=== PATIENT | female | born 1955 | race Caucasian/White ===

== ENCOUNTER 2020-07-27 04:02 | Emergency (ER) | payer OTHER ==
[~2020-07-27] VITALS: Ht 165.1 cm; Wt 65.8 kg
[~2020-07-27 04:02] MED LIST: CLARITIN10 MG PO; COREG6.25 MG PO; CRESTOR10 MG PO; FLONASE ALLERG9.9 ML NAS; LORAZEPAM0.5 MG PO; PREDNISONE10 MG PO
[2020-07-27 05:13] LABS: INTERNATIONAL NORM RATIO 0.9 (2.0-3.5)
[2020-07-27 05:21] LABS: ALBUMIN 3.4 gm/dl (3.1-4.5); ALKALINE PHOSPHATASE 54 U/L (45-117); BUN 11 mg/dl (7-24); CHLORIDE 113 mmol/L (98-107); CREATININE 0.76 mg/dL (0.55-1.02); LIPASE 107 U/L (73-393); POTASSIUM 3.9 mmol/L (3.5-5.1); SGOT/AST 13 IU/L (3-35); SGPT/ALT 20 U/L (12-78); SODIUM 144 mmol/L (136-145); TOTAL PROTEIN 6.6 gm/dL (6.4-8.2)
[2020-07-27 05:22] LABS: TROPONIN I < 0.015 ng/ml (<0.045)
[2020-07-27 05:50] LABS: BASO % 0.6 % (0.0-1.0); EOS # 0.1 10*3/uL (0.0-0.4); EOS % 1.6 % (1.0-4.0); HEMATOCRIT 43.3 % (37.0-47.0); LYMPH # 2.5 10*3/uL (1.3-4.4); LYMPH % 49.3 % (27.0-41.0); MEAN CELL VOLUME 92.9 fl (81.0-99.0); MEAN CORPUSCULAR HGB 30.7 pg (27.0-31.0); MONO # 0.5 10*3/uL (0.1-1.0); MONO % 10.7 % (3.0-9.0); NEUT # 1.9 10*3/uL (2.3-7.9); NEUT % 37.6 % (47.0-73.0); PLATELET COUNT AUTOMATED 242 10*3/uL (130-400); RED BLOOD COUNT 4.66 10*6/uL (4.10-5.10); RED CELL DISTRI WIDTH 13.2 % (0-14.5); WHITE BLOOD COUNT 5.1 10*3/uL (4.8-10.8)
[2020-07-27] MEDS ORDERED: PROTONIX40 MG PO ×2 (09:03→09:12)
[2020-07-27] MEDS ORDERED: ZOFRAN4 MG PO ×2 (09:03→09:12)
== END 2020-07-27 09:07 | disposition home or self-care (01) ==
LOC: ED 04:02
PROVIDERS: Emergency Medicine
DX: K44.9 Diaphragmatic hernia without obstruction or gangrene (principal)

== ENCOUNTER → 2021-07-20 | Outpatient (CLI) | payer MEDICARE ==
[~2021-07-20] MED LIST changes: +PROTONIX40 MG PO; +ZOFRAN4 MG PO
== END | disposition home or self-care (01) ==
LOC: COVID19 15:54
PROVIDERS: ATTEND Student in an Organized Health Care Education/Training Program
DX: Z11.52 Encounter for screening for COVID-19 (principal)

== ENCOUNTER 2023-09-07 12:30 | Emergency (ER) | payer MEDICARE ==
[~2023-09-07] VITALS: Ht 165.1 cm; Wt 56.7 kg
== END 2023-09-07 16:48 | disposition left against medical advice (07) ==
LOC: ED 12:30
DX: M25.572 Pain in left ankle and joints of left foot (principal); Z53.21 Procedure and treatment not carried out due to patient leaving prior to being seen by health care provider